=== PATIENT | female | born 1950 | race Caucasian/White ===

== ENCOUNTER 2018-12-30 16:33 | Emergency (ER) | payer MEDICARE ==
[2018-12-30] MEDS ORDERED: Sodium Chloride 0.9% 1000 ML 1,000 ML ONE (16:56)
--- NOTE | 2018-12-30 19:46 | ERPHSYRPT ---
- History of Present Illness Time Seen by Provider: 12/30/18 17:15 Source: family Exam Limitations: clinical condition Patient Subjective Stated Complaint: pt arrives via EMS from local ECF, ECF staff reports pt has an elevated BUN today at 172, ECF staff contacted PCP and they requested transport to ER to be evaluated. pt has no complaints at this time. Triage Nursing Assessment: pt is aox2, pt is pleasant, talkative with staff, pupils perrl, afebrile, resps easy and non labored, radial pulses strong and equal, cap refill < 3 seconds, pt skin pink warm dry. pt is hypotensive. pt has a small open area above the right breast, no drainage noted. diffuse area of scabbing noted to the upper back, no drainge noted. Physician History: PATIENT WITH A HISTORY OF TYPE 2 DIABETES, CHRONIC RENAL FAILURE, TRANSFERRED FROM [facility]ARE HOME FOR EVALUATION OF ELEVATED BUN 172 AND CREA 6.3. DENIES COUGH , LETHARGY, EMESIS, DIARRHEA Timing/Duration: day(s) Severity: moderate Associated Symptoms: denies symptoms Allergies/Adverse Reactions: codeine Allergy (Verified 12/30/18 17:43) cyclobenzaprine Allergy (Verified 12/30/18 17:43) Iodine and Iodide Containing Produc Allergy (Verified 12/30/18 17:43) meperidine [From Demerol] Allergy (Verified 12/30/18 17:43) morphine Allergy (Verified 12/30/18 17:43) naloxone [From Talwin NX] Allergy (Verified 12/30/18 17:43) Penicillins Allergy (Verified 12/30/18 17:43) pentazocine [From Talwin NX] Allergy (Verified 12/30/18 17:43) shellfish derived Allergy (Verified 12/30/18 17:43) tramadol Allergy (Verified 12/30/18 17:43) Hx Tetanus, Diphtheria Vaccination/Date Given: Yes Hx Influenza Vaccination/Date Given: Yes Hx Pneumococcal Vaccination/Date Given: Yes Immunizations Up to Date: No - Review of Systems Constitutional: No Fever, No Chills Eyes: No Symptoms Ears, Nose, & Throat: No Symptoms Respiratory: No Symptoms, No Cough, No Dyspnea Cardiac: No Symptoms, No Chest Pain, No Edema, No Syncope Abdominal/Gastrointestinal: No Symptoms, No Abdominal Pain, No Nausea, No Vomiting, No Diarrhea Genitourinary Symptoms: No Symptoms, No Dysuria Musculoskeletal: No Symptoms, No Back Pain, No Neck Pain Skin: No Symptoms, No Rash Neurological: No Dizziness, No Focal Weakness, No Sensory Changes Psychological: No Symptoms Endocrine: No Symptoms All Other Systems: Reviewed and Negative - Past Medical History Pertinent Past Medical History: Yes Neurological History: Dementia, Epilepsy Cardiac History: Congestive Heart Failure, Coronary Artery Disease, High Cholesterol, Hypertension Endocrine Medical History: Diabetes Type II Musculoskeletal History: Fractures GI Medical History: GERD History: Renal Disease Psycho-Social History: Anxiety, Depression Female Reproductive Disorders: Breast Cancer Other Medical History: repeated falls - Social History Smoking Status: Never smoker Drug Use: none Patient Lives Alone: No - Nursing Vital Signs Nursing Vital Signs: Initial Vital Signs Temperature 97.8 F 12/30/18 16:56 Pulse Rate 59 L 12/30/18 16:56 Respiratory Rate 20 12/30/18 16:56 Blood Pressure 87/34 12/30/18 16:56 O2 Sat by Pulse Oximetry 97 12/30/18 16:56 Pain Scale Pain Intensity 0 - Physical Exam General Appearance: no apparent distress, alert Eye Exam: PERRL/EOMI, eyes nml inspection Ears, Nose, Throat Exam: normal ENT inspection, TMs normal, pharynx normal, moist mucous membranes Neck Exam: normal inspection, non-tender, supple, full range of motion Respiratory Exam: normal breath sounds, lungs clear, No respiratory distress Cardiovascular Exam: regular rate/rhythm, normal heart sounds, normal peripheral pulses Gastrointestinal/Abdomen Exam: soft, normal bowel sounds, No tenderness, No mass Back Exam: normal inspection, normal range of motion, No CVA tenderness, No vertebral tenderness Extremity Exam: normal inspection, normal range of motion, pelvis stable Neurologic Exam: alert, oriented x 3, cooperative, normal mood/affect, nml cerebellar function, nml station & gait, sensation nml, No motor deficits Skin Exam: normal color, warm, dry, No rash Lymphatic Exam: No adenopathy SpO2: 98 - Course EKG Interpreted by Me: RATE, Other (SINUS ARRHYTHMIA RATE 63, FLAT V5-V6) - Radiology Exams Chest X-ray Interpretation: Interpreted by me (ELEVATION RIGHT HEMIDIAPHRAM, NO EVIDENCE OF INFILTRATE OR CONGESTIVE HEART FAILURE) Ordered Tests: Active Orders 24 hr Category Date Time Status EKG-ER Only STAT Care 12/30/18 16:59 Active CHEST 1 VIEW (PORTABLE) Stat Exams 12/30/18 16:58 Taken MAGNESIUM Stat Lab 12/30/18 17:30 Completed TROPONIN Q3H Lab 12/30/18 17:30 Completed TROPONIN Q3H Lab 12/30/18 20:10 Completed TROPONIN Q3H Lab 12/30/18 23:00 Ordered TROPONIN Q3H Lab 12/31/18 02:00 Ordered TROPONIN Q3H Lab 12/31/18 05:00 Ordered Medication Summary Discontinued Medications Generic Name Dose Route Start Last Admin Trade Name David PRN Reason Stop Dose Admin Sodium Chloride Confirm 12/30/18 16:56 Sodium Chloride 0.9% 1000 Ml Administered 12/30/18 16:57 Dose 1,000 mls @ ud .ROUTE .[facility] Lab/Rad Data: Laboratory Results 12/30/18 12/30/18 12/30/18 Range/Units 20:10 17:30 17:30 Magnesium 2.2 (1.6-2.3) mg/dL Troponin I 0.077 H* 0.075 H* (0.000-0.034) ng/mL - Progress Progress Note: 12/30/18 19:49 IV NORMAL SALINE 250ML BOLUS BP 87/34 IMPROVED TO 99/46 Discussed with DrKandis: Other (DISCUSSED WITH DR GARCIA AT [address] [facility]) - Departure Time of Disposition: 22:00 Departure Disposition: Transfer Clinical Impression: ACUTE RENAL FAILURE, DEHYDRATION Condition: Stable Critical Care Time: No Referrals: [facility] JULIEN MD [Primary Care Provider] -
[2018-12-30 22:14] VITALS: BP 108/50; PULSE 65; O2SAT 95
--- NOTE | 2018-12-31 08:47 | XRAY ---
Indication: Cough. Comparison: None Portable chest demonstrates mild right hemidiaphragm elevation and small left base calcified granuloma. Remaining heart and lungs unremarkable. Bony thorax intact with mild osteopenia and degenerative changes. Impression: Nonacute chest with chronic features.
== END 2018-12-30 22:14 | disposition short-term general hospital (02) ==
LOC: ED 16:33
DX: N17.9 Acute kidney failure, unspecified (principal); I12.9 Hypertensive chronic kidney disease with stage 1 through stage 4 chronic kidney disease, or unspecified chronic kidney disease; N18.9 Chronic kidney disease, unspecified; E86.0 Dehydration; F03.90 Unspecified dementia, unspecified severity, without behavioral disturbance, psychotic disturbance, mood disturbance, and anxiety; G40.909 Epilepsy, unspecified, not intractable, without status epilepticus; I50.9 Heart failure, unspecified; E78.00 Pure hypercholesterolemia, unspecified; E11.9 Type 2 diabetes mellitus without complications; K21.9 Gastro-esophageal reflux disease without esophagitis; F41.8 Other specified anxiety disorders; R29.6 Repeated falls; Z85.3 Personal history of malignant neoplasm of breast
CPT/HCPCS: 36415; 71045; 83735; 84484; 93005; 96360; 99284; 99285